=== PATIENT | female | born 1930 | race Caucasian/White ===

== ENCOUNTER → 2016-10-17 | Outpatient (CLI) | payer OTHER | LOC: BMCIMAGING 09:15 | PROVIDERS: ATTEND Family Medicine | DX: S99.922A Unspecified injury of left foot, initial encounter (principal) ==

== ENCOUNTER → 2017-01-06 | Outpatient (CLI) | payer OTHER | LOC: FIMAGING 15:36 | PROVIDERS: ATTEND Family Medicine | DX: Z12.31 Encounter for screening mammogram for malignant neoplasm of breast (principal) | CPT/HCPCS: G0202 ==

== ENCOUNTER 2017-01-25 04:46 | Emergency (ER) | payer OTHER ==
--- NOTE | 2017-01-25 04:55 | CPEKG ---
Heart Rate: 98 RR Interval: 612 P-R Interval: 176 QRSD Interval: 82 QT Interval: 364 QTC Interval: 465 P [place]: 86 QRS [place]: 43 T Wave [place]: 42 EKG Severity - OTHERWISE NORMAL ECG - EKG Impression: SINUS ARRHYTHMIA, RATE 77-149 Electronically Signed By: Fabien Marmolejo 25-Jan-2017 05:17:34
--- NOTE | 2017-01-25 05:02 | EDPHY ---
H & P Time Seen by Provider: 01/25/17 04:57 HPI/ROS: Chief Complaint: Dizzy, hypertension HPI: 86-year-old woman without a history of hypertension has been having episodes of dizziness since yesterday morning. Patient states she woke yesterday morning had a "swirling" sensation of being off balance which lasted for a few seconds. She had several episodes of that during the course of the day which were mild. She woke at 3:00 a.m. this morning to go to the bathroom. She stood up next to the toilet holding on when she had sudden onset of severe sensation of her head swirling which lasted about 4 seconds. Is now gone. She called EMS. On EMS arrival showed a blood pressure of 228/90. Last blood pressure was 180/108. No chest pain or shortness of breath. Some nausea , no vomiting. No fevers or chills. She has a history of neuropathy, spinal stenosis and glaucoma. She states she normally gets up to go to the bathroom every 2 hours overnight which is not unusual for her. Has had some urinary burning recently. No falls. Did not hit her head. Currently is without complaint. ROS: 10 point Review of Systems is negative except as noted in the HPI. PMH: Neuropathy, glaucoma, spinal stenosis Social History: No smoking, no alcohol, no recreational drug use Family History: non-contributory Physical Exam: Gen: Awake, Alert, No Distress HEENT: Nose: no rhinorrhea Eyes: PERRLA, EOMI Mouth: Moist mucosa Neck: Supple, no JVD Chest: nontender, lungs clear to auscultation Heart: S1, S2 normal, no murmur Abd: Soft, non-tender, no guarding Back: no CVA tenderness, no midline tenderness Ext: no edema, non-tender Skin: no rash Neuro: CN II-XII intact, Sensation grossly intact, Strength 5/5 in bilateral upper and lower extremities - Medical/Surgical History Hx Asthma: No Hx Chronic Respiratory Disease: No Hx Diabetes: No Hx Cardiac Disease: No Hx Renal Disease: No Hx Cirrhosis: No Hx Alcoholism: No Hx HIV/AIDS: No Hx Splenectomy or Spleen Trauma: No Other PMH: neuropathy/spinal stenosis/dvt/glaucoma, osteoarthritis, pelvic floor prolapse, chronic constipation, skin CA - Social History Smoking Status: Never smoked Constitutional: Initial Vital Signs Temperature (C) 36.7 C 01/25/17 04:47 Heart Rate 98 01/25/17 04:47 Respiratory Rate 16 01/25/17 04:47 Blood Pressure 179/100 H 01/25/17 04:47 O2 Sat (%) 93 01/25/17 04:47 O2 Delivery Mode Room Air Allergies/Adverse Reactions: Sulfa (Sulfonamide Antibiotics) Allergy (Unknown, Verified 06/12/09 17:28) Antihistamines - Alkylamine Allergy (Verified 02/01/13 08:33) ciprofloxacin [From Cipro] Allergy (Verified 08/02/11 10:34) ciprofloxacin HCl [From Cipro] Allergy (Verified 08/02/11 10:34) Penicillins Allergy (Verified 08/02/11 10:34) ANTIBIOTIC THAT STARTS WITH V NOT V Allergy (Unknown, Uncoded 06/12/09 17:29) DECONGESTANTS Allergy (Uncoded 02/01/13 08:33) Home Medications: Medication Instructions Recorded Estradiol [Estrace Vaginal (*)] 1 tashi VG Q7D 03/21/16 Latanoprost 0.005% [Xalatan 0.005% 1 drops EACHEYE HS 03/21/16 (*)] Linaclotide [Linzess] 145 mcg PO DAILY@0500 03/21/16 Polyethylene Glycol 3350 [Miralax 17 gm PO DAILY 03/21/16 17 gm (*)] Acetaminophen [Tylenol 325mg (*)] 650 mg PO Q4 PRN #0 tab 03/22/16 Gabapentin [Neurontin 100 MG (*)] 100 mg PO TID #90 cap 03/22/16 Medical Decision Making - Diagnostics EKG Interpretation: ECG time 4:54 a.m. sinus rhythm with a rate of 98, is normal axis, normal intervals, no acute ST or T-wave changes. Impression: Normal ECG. Imaging Results: CT scan of the brain shows no acute findings, there are expected changes of aging. Interpreted by Dr. Enciso. Imaging: Discussed imaging studies w/ call center support consultant Radiologist ED Course/Re-evaluation: CT scan of the head is negative. Troponin is normal. ECG is unremarkable. Urinalysis is contaminated with 4+ epithelial cells so a culture has been sent. Patient blood pressure has come down to the 160 systolic here and she is remains asymptomatic. Will discharge with follow with primary care physician in 2-3 days for re-evaluation. They will be able to follow up on her culture results. She will return for any worsening symptoms or concerns. - Data Points Laboratory Results: Laboratory Results 01/25/17 05:00 01/25/17 05:00 01/25/17 01/25/17 01/25/17 06:00 05:00 05:00 WBC 5.59 10^3/uL 10^3/uL (3.80-9.50) RBC 5.72 10^6/uL H 10^6/uL (4.18-5.33) Hgb 16.3 g/dL g/dL (12.6-16.3) Hct 49.0 % H % (38.0-47.0) MCV 85.7 fL fL (81.5-99.8) MCH 28.5 pg pg (27.9-34.1) MCHC 33.3 g/dL g/dL (32.4-36.7) RDW 12.6 % % (11.5-15.2) Plt Count 162 10^3/uL 10^3/uL (150-400) MPV 9.0 fL fL (8.7-11.7) Neut % (Auto) 56.0 % % (39.3-74.2) Lymph % (Auto) 26.1 % % (15.0-45.0) [place] % (Auto) 11.1 % % (4.5-13.0) Eos % (Auto) 4.7 % % (0.6-7.6) Baso % (Auto) 1.6 % % (0.3-1.7) Nucleat RBC Rel Count 0.0 % % (0.0-0.2) Absolute Neuts (auto) 3.13 10^3/uL 10^3/uL (1.70-6.50) Absolute Lymphs (auto) 1.46 10^3/uL 10^3/uL (1.00-3.00) Absolute Monos (auto) 0.62 10^3/uL 10^3/uL (0.30-0.80) Absolute Eos (auto) 0.26 10^3/uL 10^3/uL (0.03-0.40) Absolute Basos (auto) 0.09 10^3/uL 10^3/uL (0.02-0.10) Absolute Nucleated RBC 0.00 10^3/uL 10^3/uL (0-0.01) Immature Gran % 0.5 % % (0.0-1.1) Immature Gran # 0.03 10^3/uL 10^3/uL (0.00-0.10) Sodium 145 mEq/L H mEq/L (134-144) Potassium 4.3 mEq/L mEq/L (3.5-5.2) Chloride 109 mEq/L mEq/L (97-110) Carbon Dioxide 22 mEq/l mEq/l (22-31) Anion Gap 14 mEq/L mEq/L (8-16) BUN 16 mg/dL mg/dL (7-23) Creatinine 0.8 mg/dL mg/dL (0.6-1.0) Estimated GFR > 60 Glucose 99 mg/dL mg/dL (70-100) Calcium 9.1 mg/dL mg/dL (8.5-10.4) Troponin I < 0.012 ng/mL ng/mL (0-0.034) Urine Color YELLOW Urine Appearance MODERATELY TURBID Urine pH 5.0 (5.0-7.5) Ur Specific [place] 1.019 (1.002-1.030) Urine Protein 2+ H (NEGATIVE) Urine Ketones NEGATIVE (NEGATIVE) Urine Blood 2+ H (NEGATIVE) Urine Nitrate NEGATIVE (NEGATIVE) Urine Bilirubin NEGATIVE (NEGATIVE) Urine Urobilinogen NEGATIVE EU EU (0.2-1.0) Ur Leukocyte Esterase 2+ H (NEGATIVE) Urine RBC 50-182 /hpf H /hpf (0-3) Urine WBC 15-25 /hpf H /hpf (0-3) Ur Epithelial Cells 4+ /lpf H /lpf (NONE-1+) Urine Bacteria 4+ /hpf H /hpf (NONE SEEN) Hyaline Casts 1-5 /lpf /lpf (0-1) Urine Mucus 2+ /lpf H /lpf (NONE-1+) Urine Glucose NEGATIVE (NEGATIVE) Departure - Departure Disposition: Home, Routine, Self-Care Clinical Impression: Hypertension, Dizzy spells Condition: Good Instructions: Hypertension (ED), Dizziness (ED) Additional Instructions: If you have a brief dizzy spell again stay in 1 position and hold on to a 6 year surface until it passes. Follow up with her primary care physician in 2-3 days for further evaluation. Return emergency department for increasing headache, nausea, vomiting, persistent dizziness, falls, or any other concerns. Referrals: Rachel Martell MD [Primary Care Provider] - As per Instructions
[2017-01-25 05:09] VITALS: RESP 16
[2017-01-25 05:10] LABS: % IMMATURE GRANULYOCYTES 0.5 % (0.0-1.1); ABSOLUTE IMMATURE GRANULOCYTES 0.03 10^3/uL (0.00-0.10); ADD DIFF? NO; ADD MORPH? NO; ADD SCAN? NO; ATYPICAL LYMPHOCYTE FLAG 10 (0-99); FRAGMENT RBC FLAG 0 (0-99); HEMOGLOBIN 16.3 g/dL (12.6-16.3); LEFT SHIFT FLG 0 (0-99); LIPEMIA HEMOLYSIS FLAG 80 (0-99); MEAN CELL HEMOGLOBIN 28.5 pg (27.9-34.1); MEAN CELL HEMOGLOBIN CONCENTR. 33.3 g/dL (32.4-36.7); MEAN CELL VOLUME 85.7 fL (81.5-99.8); PLATELET CLUMPS FLAG 0 (0-99); PLATELET COUNT 162 10^3/uL (150-400); RED BLOOD CELL COUNT 5.72 10^6/uL (4.18-5.33); RED CELL DISTRIBUTION WIDTH 12.6 % (11.5-15.2)
[2017-01-25 05:21] LABS: ANION GAP 14 mEq/L (8-16); CALCIUM 9.1 mg/dL (8.5-10.4); CARBON DIOXIDE 22 mEq/l (22-31); CHLORIDE 109 mEq/L (97-110); CREATININE 0.8 mg/dL (0.6-1.0); GLOMERULAR FILTRATION RATE > 60; GLUCOSE 99 mg/dL (70-100); POTASSIUM 4.3 mEq/L (3.5-5.2); SODIUM 145 mEq/L (134-144)
[2017-01-25 05:33] LABS: TROPONIN I < 0.012 ng/mL (0-0.034)
[2017-01-25 05:38] VITALS: TEMP 98.1
[2017-01-25 06:11] LABS: COLOR YELLOW; LEUKOCYTE ESTERASE,URINE 2+ (NEGATIVE); NITRITE,URINE NEGATIVE (NEGATIVE)
[2017-01-25 06:14] LABS: BACTERIA 4+ /hpf (NONE SEEN); MUCUS 2+ /lpf (NONE-1+); RBC,URINE 50-182 /hpf (0-3); WBC,URINE 15-25 /hpf (0-3)
[2017-01-25 07:06] VITALS: BP 170/76; PULSE 82; O2SAT 94
== END 2017-01-25 07:05 | disposition home or self-care (01) ==
LOC: EDUNIT#
DX: R42 Dizziness and giddiness (principal); I10 Essential (primary) hypertension; R30.9 Painful micturition, unspecified; Z85.828 Personal history of other malignant neoplasm of skin

== ENCOUNTER → 2017-07-17 | Outpatient (CLI) | payer OTHER | LOC: BHFA 11:00 | PROVIDERS: ATTEND Internal Medicine Cardiovascular Disease | DX: R42 Dizziness and giddiness (principal); I10 Essential (primary) hypertension ==

== ENCOUNTER → 2017-08-05 | Outpatient (CLI) | payer OTHER | LOC: BHFA 15:30 | PROVIDERS: ATTEND Internal Medicine Cardiovascular Disease | DX: I10 Essential (primary) hypertension (principal) ==

== ENCOUNTER → 2018-03-04 | Outpatient (CLI) | payer OTHER | LOC: FIMAGING 09:00 | PROVIDERS: ATTEND Internal Medicine | DX: Z12.31 Encounter for screening mammogram for malignant neoplasm of breast (principal) ==

== ENCOUNTER 2018-06-21 09:25 | Emergency (ER) | payer OTHER ==
--- NOTE | 2018-06-21 09:39 | EDPHY ---
H & P Stated Complaint: fell leaning over bathtub/landing on both elbows/denies other inj - Personal History Current Tetanus Diphtheria and Acellular Pertussis (TDAP): Yes - Medical/Surgical History Hx Asthma: No Hx Chronic Respiratory Disease: No Hx Diabetes: No Hx Cardiac Disease: No Hx Renal Disease: No Hx Cirrhosis: No Hx Alcoholism: No Hx HIV/AIDS: No Hx Splenectomy or Spleen Trauma: No Other PMH: neuropathy/spinal stenosis/dvt/glaucoma, osteoarthritis, pelvic floor prolapse, chronic constipation, skin CA vertigo - Social History Smoking Status: Never smoked Time Seen by Provider: 06/21/18 09:35 Constitutional: Initial Vital Signs Temperature (C) 36.6 C 06/21/18 09:30 Heart Rate 94 06/21/18 09:30 Respiratory Rate 18 06/21/18 09:30 Blood Pressure 171/120 H 06/21/18 09:30 O2 Sat (%) 92 06/21/18 09:30 O2 Delivery Mode Room Air Allergies/Adverse Reactions: Sulfa (Sulfonamide Antibiotics) Allergy (Unknown, Verified 06/21/18 09:28) Antihistamines - Alkylamine Allergy (Verified 06/21/18 09:28) ciprofloxacin [From Cipro] Allergy (Verified 06/21/18 09:28) ciprofloxacin HCl [From Cipro] Allergy (Verified 06/21/18 09:28) Penicillins Allergy (Verified 06/21/18 09:28) ANTIBIOTIC THAT STARTS WITH V NOT V Allergy (Unknown, Uncoded 06/12/09 17:29) DECONGESTANTS Allergy (Uncoded 02/01/13 08:33) Home Medications: Medication Instructions Recorded Latanoprost 0.005% [Xalatan 0.005% 1 drops EACHEYE HS 03/21/16 (*)] Polyethylene Glycol 3350 [Miralax 17 gm PO DAILY 03/21/16 17 gm (*)] Acetaminophen [Tylenol 325mg (*)] 650 mg PO Q4 PRN #0 tab 03/22/16 Aspirin 81mg (*) 06/21/18 Hydrocodone/APAP 5/325 [Terra [place] 1 - 2 each PO Q4-6PRN PRN #20 tab 06/21/18 5/325] Medical Decision Making - Diagnostics Imaging: Discussed imaging studies w/ calliope player Radiologist, I viewed and interpreted images myself - Diagnostics Imaging Results: Imaging Impressions Elbow X-Ray 06/21/18 09:53 Impression: 1. Joint effusion suggesting occult fracture. 2. Extensive dorsal soft tissue swelling/hematoma. Findings discussed with Dr. Momo Rodriguez on June 21, 2018 at 1131 hours. Knee X-Ray 06/21/18 09:53 Impression: 1. No acute osseous findings. 2. Degenerative change as above. Knee X-Ray 06/21/18 09:53 Impression: 1. No acute fracture or effusion. 2. Severe osteoarthritis. Procedures: My involvement the care this patient is solely for procedure. Please see the note of the attending physician for all other aspects of care. PROCEDURE: Laceration repair Consent: Verbal Location: Left elbow, posterior Length of repair: 2 cm Complexity: Simple Layer involvement: Single Anesthesia: Local. 0.25% Marcaine with epinephrine, 5 mL Irrigation: Extensive Debridement: None Procedure description: Following good anesthesia, the wound was copiously irrigated. Wound bed was explored with a sterile glove, and there is no foreign body noted. No communication to the joint line. Wound borders were approximated well with good hemostasis. Tolerated well without complication. Suture/Staple material: 3-0 Prolene, 2 simple ruptured sutures Wound care: Routine as discussed Suture/Staple removal: 10-14 Days (Vitaliy Montgomery) ED Course/Re-evaluation: CHIEF COMPLAINT: Fall, left elbow injury HISTORY OF PRESENT ILLNESS: The patient is an 88 y/o female with a history of arthritis arriving via EMS with her son after a fall in the bathtub. She was leaning over the bathtub attempted to stop a leak when she slipped and fell into the tub onto both elbows and both knees. She was unable to get up and though she had a Life Alert button, decided to call her son for help. He then contacted EMS for transport here. The patient denies striking her head, loss of consciousness, midline neck or back pain, weakness, paresthesias, other trauma, or other acute complaints. No anticoagulants. REVIEW OF SYSTEMS: A comprehensive 10 system review of systems is otherwise negative aside from elements mentioned in the history of present illness and medical decision making. PHYSICAL EXAM: HR, BP, O2 Sat, RR. Temp noted General Appearance: Alert, well hydrated, appropriate, and non-toxic appearing. Head: Atraumatic without scalp tenderness or obvious injury Eyes: Pupils equal, round, reactive to light and accommodation, EOMI, no trauma , no injection. Nose: Atraumatic, no rhinorrhea, clear. Throat: Mucus membranes moist. Neck: Supple, nontender, no lymphadenopathy. Respiratory: No retractions, no distress, no wheezes, and no accessory muscle use. Lungs are clear to auscultation bilaterally. Cardiovascular: Regular rate and rhythm, no murmurs, rubs, or gallops. Good capillary refill all extremities. Gastrointestinal: Abdomen is soft, nontender, non-distended, no masses, no rebound, no guarding, no peritoneal signs. Musculoskeletal: Large left posterior elbow hematoma with small puncture wound , some reduction in ROM. Contusions to both knees. Neurological: Alert, appropriate, and interactive. Nonfocal. Skin: No rashes, good turgor, no nodules on palpation. Past medical history: neuropathy, spinal stenosis, DVT, glaucoma, osteoarthritis , pelvic floor prolapse, chronic constipation, skin cancer, vertigo Past surgical history: noncontributory Family history: noncontributory Social history: Son at bedside. . Lives in [place]. PCP: Dr. Davis. DIAGNOSTICS/PROCEDURES/CRITICAL CARE TIME: Left elbow x-ray: soft tissue swelling, can't exclude occult fracture, degenerative changes Bilateral knee x-rays: degenerative changes, nothing acute Wound closure by ALYSA Montgomery. DIFFERENTIAL DIAGNOSIS: The differential diagnosis for the patient's trauma included but was not limited to intracranial injury, long bone and pelvic bone fractures, spinal injury, intra-abdominal injury, and intra-thoracic injury. MEDICAL DECISION MAKING: This is an 88 y/o female who presents with a left elbow injury secondary to a slip and fall in the bathtub this morning. She has a large left elbow hematoma with tenderness and a small puncture wound as well as contusions on her knees. She is neurovascularly intact. Plan for elbow and x-ray imaging and wound care. X-rays show degenerative changes, soft tissue swelling, and likely occult elbow fracture. Patient will be placed in a sling and discharged with referral to ortho and script for Terra Bella. Standard care and follow up instructions discussed. She is comfortable with this plan. (Momo Rodriguez) Departure - Departure Disposition: Home, Routine, Self-Care Clinical Impression: Multiple contusions Fall in bathtub Qualifiers: Encounter type: initial encounter Qualified Code(s): W18.2XXA - Fall in (into) shower or empty bathtub, initial encounter Occult fracture of elbow Qualifiers: Encounter type: initial encounter Fracture type: closed Laterality: left Qualified Code(s): S42.402A - Unspecified fracture of lower end of left humerus , initial encounter for closed fracture Condition: Good Instructions: Elbow Fracture (ED) Additional Instructions: 1. Wear sling until follow up with orthopedist. 2. Use Ter[place] Bella as prescribed when needed for severe pain. This is a narcotic and can cause drowsiness and constipation. Do not use while driving. Do not take Tylenol with this medication. 3. Follow up with orthopedist within the next week. I recommend calling today to schedule this appointment. 4. Return to the ED for any worsening of condition. Return in 10-14 days for suture removal. Referrals: Laverne Davis MD [Primary Care Provider] - As per Instructions Clifton Youngblood MD [Medical Doctor] - As per Instructions Prescriptions: Hydrocodone/APAP 5/325 [T[place] 5/325] 1 - 2 each PO Q4-6PRN PRN #20 tab PRN Reason: Pain, Moderate Report Scribed for: Momo Rodriguez Report Scribed by: Whit Lowe Date of Report: 06/21/18 Time of Report: 11:15
[2018-06-21 12:05] VITALS: BP 192/85
== END 2018-06-21 12:05 | disposition home or self-care (01) ==
PROC: 0HQEXZZ Repair Left Lower Arm Skin, External Approach (ICD-10-PCS; principal; 2018-06-21)
DX: S42.402A Unspecified fracture of lower end of left humerus, initial encounter for closed fracture (principal); S51.012A Laceration without foreign body of left elbow, initial encounter; S80.02XA Contusion of left knee, initial encounter; S80.01XA Contusion of right knee, initial encounter; W18.2XXA Fall in (into) shower or empty bathtub, initial encounter; Y92.012 Bathroom of single-family (private) house as the place of occurrence of the external cause; Y93.9 Activity, unspecified; Y99.9 Unspecified external cause status
CPT/HCPCS: 12001; 73080; 73564; 99284; A4565